=== PATIENT | female | born 1935 | race Caucasian/White ===

== ENCOUNTER 2019-05-07 18:23 | Observation (INO) ==
--- NOTE | 2019-05-07 19:30 | XRay Report ---
XR chest 1V portable CLINICAL HISTORY: Shortness of breath COMPARISON STUDY: No previous studies for comparison. FINDINGS: The cardiac and mediastinal contours are normal. There is no evidence of focal pulmonary co nsolidation. There is no evidence of failure. No pleural effusions are visualized.[Increased markings at the lung bases, likely related to technical factors. There is a 4 mm left midlung zone opacity st atistically postinflammatory. IMPRESSION: No active disease in the chest. Electronically signed by: Gwyn Ortiz M.D. 05/07/2019 7:29 PM
[2019-05-07 19:39] LABS: Basophils # (auto) 0.03 K/uL (0-0.2); Basophils % (auto) 0.5 %; Eosinophils % (auto) 5.3 %; Hematocrit (blood only) 37.5 % (37-47); Hemoglobin 12.8 g/dL (12.0-16.0); Immature Granulocytes # (auto) 0.02 K/uL (0.00-0.02); Immature Granulocytes % (auto) 0.4 %; Lymphocytes # (auto) 2.19 K/uL (1.2-3.4); Lymphocytes % (auto) 38.4 %; Mean Corpuscular Hgb Conc 34.1 g/dL (32-36); Mean Corpuscular Volume 90.1 fL (80-100); Mean Platelet Volume 10.5 fL (7.4-10.4); Monocytes # (auto) 0.48 K/uL (0.11-0.59); Monocytes % (auto) 8.4 %; Neutrophils # (auto) 2.68 K/uL (1.4-6.5); Platelet Count 190 K/uL (130-400); RDW Coefficient of Variation 12.7 % (11.5-14.5); RDW Standard Deviation 40.5 fL (36.4-46.3); Red Blood Count 4.16 M/uL (4.2-5.4)
[2019-05-07 21:31] LABS: Alanine Aminotransferase 24 U/L (12-78); Albumin Level 3.5 gm/dl (3.4-5.0); Alkaline Phosphatase 71 U/L (45-117); Aspartate Aminotransferase 24 U/L (15-37); BUN Creatinine Ratio 19.5 (10-20); Bilirubin,Total 0.4 mg/dl (0.2-1); Blood Urea Nitrogen 18 mg/dl (7-18); Carbon Dioxide 26 mmol/L (21-32); Chloride 109 mmol/L (98-107); Creatinine Clr Calc Pharmacy 48.1 ml/min; Est GFR (African American) 65.9; Est GFR (Non-African American) 56.8; Globulin 3.6 gm/dl (2.5-4.0); Glucose 102 mg/dl (70-99); Sodium 141 mmol/L (136-145); Total Protein 7.1 gm/dl (6.4-8.2)
[2019-05-07] MEDS ORDERED: OPTIRAY 320 125ml IV PRN (22:07)
[2019-05-07 22:36] LABS: NT Pro B Type Natriuretic Pept 108 pg/ml (0-1800); Troponin I < 0.015 ng/ml (0-0.045)
--- NOTE | 2019-05-07 22:37 | CT Scan Report ---
CT ANGIOGRAM OF THE CHEST CLINICAL HISTORY: Atypical chest pain and shortness of breath. Possible pulmonary embolism. COMPARISON STUDY: Chest x-ray dated 05/07/2019 TECHNIQUE: Following the IV administration of 119 mL of Optiray-320, CT angiogram of the thorax was p erformed from the thoracic inlet to the lung bases utilizing the pulmonary embolus protocol. Images a re reviewed in the axial, sagittal, and coronal planes. IV contrast was administered without complica tion. MIP imaging was performed. A dose lowering technique was utilized adhering to the principles o f ALARA. CT DOSE: 607.19 mGy.cm FINDINGS: There are calcified mediastinal and hilar lymph nodes, likely on a postinflammatory basis. There is n o pathologic axillary lymphadenopathy. There is no evidence of thoracic aortic aneurysm There were no pulmonary artery filling defects to indicate acute pulmonary embolism. No pleural effusions are visualized. There are groundglass opacities within is a distribution, likely secondary to air trapping. There is no lobar consolidation. There are scattered calcified granulomas. There is mild bronchial wall thicke jame with scattered areas of mucous plugging. There is a minor midthoracic compression deformity likely old IMPRESSION: 1. No evidence of acute pulmonary embolism 2. Scattered calcified granulomas and calcified mediastinal and hilar lymph nodes likely on a postinf lammatory basis 3. Groundglass pulmonary opacities with mosaic distribution. This is likely secondary to airway disea se with areas of air trapping. 4. Mild bronchial wall thickening and scattered areas of mucous plugging Electronically signed by: Gwyn Ortiz M.D. 05/07/2019 10:36 PM
[2019-05-07] MEDS ORDERED: ASPIRIN CHEW 324 MG PO STA (23:18)
[2019-05-07] MEDS ORDERED: METOPROLOL SUCC 50MG EXT REL TAB PO SCH (23:30)
[2019-05-07] MEDS ORDERED: ALBUT/IPRATROP 3MG/0.5MG NEB 3 ML VIAL NEB STA (23:30)
[2019-05-07] MEDS ORDERED: NITROGLYCERIN SL 0.4 MG/TAB TAB SL STA (23:50)
[2019-05-07] MEDS ORDERED: NITROGLYCERIN SL 0.4 MG/TAB TAB ONE (23:55)
[2019-05-08 00:15] LABS: Magnesium 2.2 mg/dl (1.8-2.4)
--- NOTE | 2019-05-08 01:19 | History & Physical Report ---
Date of Service May 08, 2019 Assessment & Plan (1) Chest tightness: Possibly from hypertensive urgency Definite musculoskeletal component with left-sided reproducible tenderness, recent breast biopsy procedure recurrent pneumothorax status post surgery past tobacco abuse OBS PCU Analgesia Continue losartan, titrate home beta-liz, may need additional medication Trend troponin TTE RE chest pain DVT prophylaxis. Lovenox subcu Full code History of Present Illness Chief Complaint: Chest tightness, shortness of breath Primary Care Provider: Dr. Brian Joy ([place], [place]) History obtained from patient and records. Medical history significant for hypertension, recurrent pneumothorax status post surgery, past tobacco abuse. Patient is a resident of [place], [place] who has been in town since last week to attend a local music festival. 3 days history of shortness of breath worse on exertion associated with inter mittent left-sided chest tightness, nonradiating. No cough symptoms. Usual SBP 120-160s. Denies dietary indiscretion, NSAID intake. Some stress with recent in the family. Patient also gives history of a recent left breast biopsy procedure. Patient currently comfortable at the emergency room. Medical History as above Surgical History : Lung surgery, cholecystectomy, appendectomy, hysterectomy, breast biopsy procedure Family History : Heart disease Personal/Social history : Past tobacco abuse, occasional EtOH intake, retired from cafeteria work Allergies Allergy/AdvReac Type Severity Reaction Status Date / Time sulfamethoxazole Allergy Rash Verified 05/07/19 23:30 [From Bactrim] trimethoprim [From Bactrim] Allergy Rash Verified 05/07/19 23:30 nitroglycerin AdvReac Intermediate delgado Verified 05/08/19 01:25 Home Medications Home Medications Medication Instructions Recorded Confirmed Type aspirin 81 mg PO DAILY 05/07/19 05/07/19 History losartan 100 mg PO DAILY 05/07/19 05/07/19 History metoprolol succinate 100 mg PO QPM 05/07/19 05/07/19 History vshrohyp-ure-EL-lycopen-lutein 1 tab PO DAILY 05/07/19 05/07/19 History [Centrum Silver] omega 1-nlh-aku-fish oil [Fish Oil] 1 cap PO DAILY 05/07/19 05/07/19 History Past Med/Surg History Medical History Pneumothorax (Resolved) H/O: hysterectomy Hyperlipidemia Surgical History Hx of cholecystectomy Family History Father Heart disease Brother Cancer Father Cancer Mother Cancer Social History Preferred Language: Ecuadorean Communication Ability: Effective Nailhead Setter Required: No Beliefs That Will Affect Care: None Current Living Situation: Spouse Other Information That Helps Us Care for You: No Feels Safe at Home: Yes Safety Concerns: Feels Safe At This Time Smoking Status: Former smoker Hx Alcohol Use: No Hx Substance Use: No Review of Systems Review of Systems: As per HPI, all 10 systems reviewed, all other ROS negative Physical Exam Physical Exam: GENERAL: Comfortable, pleasant, looks younger for stated age, no respiratory distress SKIN: Normal color, warm HEENT: [place] palpebral conjunctivae, no ptosis, dry buccal mucosa NECK : Supple, no tenderness CHEST : CTA, left anterior chest wall tenderness HEART : RRR, no obvious murmurs ABDOMEN: Some distention, nontender EXTREMITIES : No LE swelling/tenderness, no other conspicuous deformities noted NEUROLOGIC : Coherent, no facial asymmetry, no other gross focality Results & Data Vital Signs (Past 12 Hours) Vital Signs Temp Pulse Pulse Pulse Resp Resp BP 05/08/19 00:00 75 18 05/07/19 22:57 79 88 18 18 05/07/19 21:31 79 18 05/07/19 20:03 80 18 05/07/19 18:38 37.0 C 85 24 166/80 H BP Pulse Ox Pulse Ox 05/08/19 00:00 172/93 H 96 05/07/19 22:57 179/87 H 96 90 05/07/19 21:31 167/92 H 93 05/07/19 20:03 141/80 H 93 05/07/19 18:38 96 Laboratory Results Laboratory Results WBC 5.70 K/uL (4.8-10.8) 05/07/19 19:24 RBC 4.16 M/uL (4.2-5.4) L 05/07/19 19:24 Hgb 12.8 g/dL (12.0-16.0) 05/07/19 19:24 Hct 37.5 % (37-47) 05/07/19 19:24 MCV 90.1 fL (80-100) 05/07/19 19:24 MCH 30.8 pg (25-34) 05/07/19 19:24 MCHC 34.1 g/dL (32-36) 05/07/19 19:24 RDW Std Deviation 40.5 fL (36.4-46.3) 05/07/19 19:24 RDW Coeff of Amy 12.7 % (11.5-14.5) 05/07/19 19:24 Plt Count 190 K/uL (130-400) 05/07/19 19:24 MPV 10.5 fL (7.4-10.4) H 05/07/19 19:24 Immature Gran % (Auto) 0.4 % 05/07/19 19:24 Neut % (Auto) 47.0 % 05/07/19 19:24 Lymph % (Auto) 38.4 % 05/07/19 19:24 Dale % (Auto) 8.4 % 05/07/19 19:24 Eos % (Auto) 5.3 % 05/07/19 19:24 Baso % (Auto) 0.5 % 05/07/19 19:24 Immature Gran # (Auto) 0.02 K/uL (0.00-0.02) 05/07/19 19:24 Neut # (Auto) 2.68 K/uL (1.4-6.5) 05/07/19 19:24 Lymph # (Auto) 2.19 K/uL (1.2-3.4) 05/07/19 19:24 Dale # (Auto) 0.48 K/uL (0.11-0.59) 05/07/19 19:24 Eos # (Auto) 0.30 K/uL (0-0.5) 05/07/19 19:24 Baso # (Auto) 0.03 K/uL (0-0.2) 05/07/19 19:24 Sodium 141 mmol/L (136-145) 05/07/19 20:21 Potassium 4.0 mmol/L (3.5-5.1) 05/07/19 20:21 Chloride 109 mmol/L (98-107) H 05/07/19 20:21 Carbon Dioxide 26 mmol/L (21-32) 05/07/19 20:21 Anion Gap 6.0 (3-11) 05/07/19 20:21 BUN 18 mg/dl (7-18) 05/07/19 20:21 Creatinine 0.93 mg/dl (0.6-1.2) 05/07/19 20:21 Est Cr Clr Drug Dosing 48.1 ml/min 05/07/19 20:21 Est GFR ( Amer) 65.9 05/07/19 20:21 Est GFR (Non-Af Amer) 56.8 05/07/19 20:21 BUN/Creatinine Ratio 19.5 (10-20) 05/07/19 20:21 Glucose 102 mg/dl (70-99) H 05/07/19 20:21 Calcium 9.0 mg/dl (8.5-10.1) 05/07/19 20:21 Magnesium 2.2 mg/dl (1.8-2.4) 05/07/19 20:21 Total Bilirubin 0.4 mg/dl (0.2-1) 05/07/19 20:21 AST 24 U/L (15-37) 05/07/19 20:21 ALT 24 U/L (12-78) 05/07/19 20:21 Alkaline Phosphatase 71 U/L (45-117) 05/07/19 20:21 Troponin I < 0.015 ng/ml (0-0.045) 05/07/19 20:21 NT-Pro-B Natriuret Pep 108 pg/ml (0-1800) 05/07/19 20:21 Total Protein 7.1 gm/dl (6.4-8.2) 05/07/19 20:21 Albumin 3.5 gm/dl (3.4-5.0) 05/07/19 20:21 Globulin 3.6 gm/dl (2.5-4.0) 05/07/19 20:21 Albumin/Globulin Ratio 1.0 (0.9-2) 05/07/19 20:21 Lipase Cancelled 05/07/19 19:24 Specimen Hemolysis 05/07/19 20:[address] chest: 1. No evidence of acute pulmonary embolism 2. Scattered calcified granulomas and calcified mediastinal and hilar lymph nodes likely on a postinflammatory basis 3. Groundglass pulmonary opacities with mosaic distribution. This is likely secondary to airway disease with areas of air trapping. 4. Mild bronchial wall thickening and scattered areas of mucous plugging EKG as per my interpretation: Rate 80, NSR, RAD, LPFB, LAE, T wave inversion lateral leads, PVCs
[2019-05-08] MEDS ORDERED: METOPROLOL SUCC 50MG EXT REL TAB PO STA (01:29)
[2019-05-08] MEDS ORDERED: ACETAMINOPHEN 325 MG TAB PO PRN (02:23)
[2019-05-08] MEDS ORDERED: TRAMADOL HCL 50 MG TABLET PO PRN (02:23)
[2019-05-08] MEDS ORDERED: PROMETHAZINE HCL 12.5 MG in SODIUM CHLORIDE 0.9% 50 ML IV PRN (02:23)
[2019-05-08] MEDS ORDERED: LORazepam 0.25 MG/0.5 ML VIAL IV PRN (02:23)
[2019-05-08] MEDS ORDERED: SODIUM CHLORIDE 0.45 % 1,000 ML IV STA (02:23)
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
[2019-05-08 03:21] LABS: Basophils # (auto) 0.03 K/uL (0-0.2); Basophils % (auto) 0.4 %; Eosinophils # (auto) 0.34 K/uL (0-0.5); Hematocrit (blood only) 38.4 % (37-47); Hemoglobin 13.1 g/dL (12.0-16.0); Immature Granulocytes # (auto) 0.01 K/uL (0.00-0.02); Immature Granulocytes % (auto) 0.1 %; Lymphocytes # (auto) 3.22 K/uL (1.2-3.4); Lymphocytes % (auto) 47.4 %; Mean Corpuscular Hgb Conc 34.1 g/dL (32-36); Mean Corpuscular Volume 91.4 fL (80-100); Mean Platelet Volume 9.7 fL (7.4-10.4); Monocytes # (auto) 0.66 K/uL (0.11-0.59); Monocytes % (auto) 9.7 %; Neutrophils # (auto) 2.53 K/uL (1.4-6.5); Neutrophils % (auto) 37.4 %; Platelet Count 198 K/uL (130-400); RDW Coefficient of Variation 12.5 % (11.5-14.5); RDW Standard Deviation 41.4 fL (36.4-46.3); White Blood Count 6.79 K/uL (4.8-10.8)
[2019-05-08 03:33] LABS: Partial Thromboplastin Ratio 0.8; Partial Thromboplastin Time 22.2 Seconds (21.0-31.0); Prothrombin Time 10.2 Seconds (9.0-12.0)
[2019-05-08 03:37] LABS: BUN Creatinine Ratio 19.2 (10-20); Blood Urea Nitrogen 18 mg/dl (7-18); Calcium 8.7 mg/dl (8.5-10.1); Carbon Dioxide 26 mmol/L (21-32); Chloride 107 mmol/L (98-107); Creatinine Clr Calc Pharmacy 48.7 ml/min; Est GFR (African American) 66.7; Est GFR (Non-African American) 57.6; Glucose 94 mg/dl (70-99); Potassium 4.3 mmol/L (3.5-5.1); Sodium 140 mmol/L (136-145)
[2019-05-08 03:42] LABS: Chol HDL Ratio 7; Cholesterol 239 mg/dl (0-200); HDL Cholesterol 37 mg/dl; LDL Cholesterol Calculated 155 mg/dl; Triglycerides 234 mg/dl (0-150); Troponin I < 0.015 ng/ml (0-0.045); VLDL Cholesterol 47 mg/dl
[2019-05-08] MEDS: CEROVITE ADV FORMULA TAB PO SCH (08:19)
[2019-05-08] MEDS: ASPIRIN 81 MG ECTAB PO SCH (08:19)
[2019-05-08] MEDS: LOSARTAN POTASSIUM 50 MG TAB PO SCH (08:19)
[2019-05-08] MEDS ORDERED: ENOXAPARIN INJ 30 MG/0.3 ML SYR SQ SCH (09:00)
[2019-05-08] MEDS ORDERED: METOPROLOL SUCC 25MG EXT REL TAB PO SCH ×2 (21:00)
[2019-05-08] MEDS ORDERED: METOPROLOL SUCC 50MG EXT REL TAB PO SCH (21:00)
--- NOTE | 2019-05-08 21:38 | Communication Note ---
Date of Service: May 08, 2019 Admitted early this morning with chest pressure and dyspnea on exertion. Rechecked this afternoon. Vital signs stable. O2 sats in 90's on RA. Feels better, but still has ongoing chest pressure. Lungs- clear Heart- RRR, no murmur, gallop, or rub appreciated Troponins negative. EKG demonstrated inferior T wave inversions, no baseline available for compariso n. CTA negative for pulmonary embolism. Concerned about recent onset of chest pressure and dyspnea on exertion. Will order stress testing before discharge. Patient had some form of pharmacologic stress testing greater than 10 years ago and found it to be an unpleasant experience. She prefers a treadmill stress test and feels that she will be able to ambulate on the treadmill.
[2019-05-09] MEDS: CEROVITE ADV FORMULA TAB PO SCH (08:03)
[2019-05-09] MEDS: LOSARTAN POTASSIUM 50 MG TAB PO SCH (08:03)
[2019-05-09] MEDS: ASPIRIN 81 MG ECTAB PO SCH (08:04)
[2019-05-09] MEDS ORDERED: ENOXAPARIN INJ 40 MG/0.4 ML SYR SQ SCH (09:00)
[2019-05-09] MEDS ORDERED: DOBUTamine HCL 12.5 MG/ML 20 ML VIAL IV ONE (09:01)
[2019-05-09] MEDS ORDERED: ATROPINE SULFATE 0.1 MG/ML 10ML SYR IV ONE (09:01)
[2019-05-09] MEDS ORDERED: METOPROLOL TARTRATE 1 MG/ML VIAL IV ONE (09:01)
--- NOTE | 2019-05-09 14:38 | Hospitalist Progress Note ---
Date of Service May 09, 2019 Assessment & Plan (1) Chest tightness: Troponins negative. EKG showed nonspecific T-wave changes inferiorly. Rest echo showed normal LV wall motion and systolic function. No evidence of stress-induced ischemia on dobutamine stress echo. CTA chest negative for pulmonary embolism. (2) Dyspnea on exertion: O2 sats in 90's on RA. CTA chest: IMPRESSION: 1. No evidence of acute pulmonary embolism 2. Scattered calcified granulomas and calcified mediastinal and hilar lymph nodes likely on a postinflammatory basis 3. Groundglass pulmonary opacities with mosaic distribution. This is likely secondary to airway disease with areas of air trapping. 4. Mild bronchial wall thickening and scattered areas of mucous plugging Nonsmoker. No history of asthma, COPD, or other pulmonary disease. No fever. No cough. Consider outpatient PFT's if symptoms persist. (3) Hypertension: BP's fluctuated. Continue metoprolol and losartan. Patient has BP monitor at home. Check BP's BID and keep diary to share with PCP. (4) DVT prophylaxis: Received enoxaparin. Ambulating. (5) Discharge planning issues: Discharge to home. Follow-up with PCP in [place]: Brian Joy MD [address] [place] [address], [address] [place] [address] Subjective Doing well. No further chest pain or SOB. Dobutamine stress echo this morning went well- no CP or stress-induced ischemia. Physical Exam Constitutional: no acute distress Respiratory: no respiratory distress Auscultation: lungs clear to auscultation bilaterally Cardiovascular: Rate/Rhythm: regular rate and regular rhythm Heart Sounds: no gallop, no murmur and no cardiac rub Vessels: no JVD Extremities: no calf tenderness and no edema Gastrointestinal (Abdomen): normal bowel sounds, soft, nontender, no hepatosplenomegaly Skin: no rashes, warm and dry Psychiatric: Orientation: alert and oriented x 3 Results & Data Vital Signs (Past 12 Hours) Vital Signs Temp Pulse Pulse Resp BP Pulse Ox 05/09/19 11:52 37.1 C 72 18 130/60 95 05/09/19 07:44 36.6 C 70 18 102/66 94 05/09/19 07:29 66 05/09/19 03:40 36.7 C 81 16 134/69 95 (1) Hypertension Hypertension type: essential hypertension Qualified Code(s): I10 - Essential (primary) hypertension
--- NOTE | 2019-05-10 08:58 | Discharge Summary ---
Date of Service Date of Admission: 05/08/19 Date of Discharge: 05/09/19 Admission HPI Per Admitting Provider History obtained from patient and records. Medical history significant for hypertension, recurrent pneumothorax status post surgery, past tobacco abuse. Patient is a resident of [place], [place] who has been in town since last week to attend a local music festival. 3 days history of shortness of breath worse on exertion associated with intermittent left-sided chest tightness, nonradiating. No cough symptoms. Usual SBP 120-160s. Denies dietary indiscretion, NSAID intake. Some stress with recent in the family. Patient also gives history of a recent left breast biopsy procedure. Patient currently comfortable at the emergency room. Admission Exam Per Admitting Provider GENERAL: Comfortable, pleasant, looks younger for stated age, no respiratory distress SKIN: Normal color, warm HEENT: [place] palpebral conjunctivae, no ptosis, dry buccal mucosa NECK : Supple, no tenderness CHEST : CTA, left anterior chest wall tenderness HEART : RRR, no obvious murmurs ABDOMEN: Some distention, nontender EXTREMITIES : No LE swelling/tenderness, no other conspicuous deformities noted NEUROLOGIC : Coherent, no facial asymmetry, no other gross focality Principal Diagnosis chest pain- MN and PE rule out dyspnea on exertion Discharge Data Allergies Allergy/AdvReac Type Severity Reaction Status Date / Time sulfamethoxazole Allergy Rash Verified 05/07/19 23:30 [From Bactrim] trimethoprim [From Bactrim] Allergy Rash Verified 05/07/19 23:30 nitroglycerin AdvReac Intermediate delgado Verified 05/08/19 01:25 Consultations 05/07/19 23:16 ED Decision to Admit Stat 05/09/19 11:53 Burn CD for patient Routine Ordered Studies 05/07/19 19:31 CT angio chest PE protocol Stat Hospital Course (1) Chest tightness: Troponins negative. EKG showed nonspecific T-wave changes inferiorly. Rest echo showed normal LV wall motion and systolic function. No evidence of stress-induced ischemia on dobutamine stress echo. CTA chest negative for pulmonary embolism. (2) Dyspnea on exertion: O2 sats in 90's on RA. CTA chest: IMPRESSION: 1. No evidence of acute pulmonary embolism 2. Scattered calcified granulomas and calcified mediastinal and hilar lymph nodes likely on a postinflammatory basis 3. Groundglass pulmonary opacities with mosaic distribution. This is likely secondary to airway disease with areas of air trapping. 4. Mild bronchial wall thickening and scattered areas of mucous plugging Nonsmoker. No history of asthma, COPD, or other pulmonary disease. No fever. No cough. Consider outpatient PFT's if symptoms persist. (3) Hypertension: BP's fluctuated (as high as 180/91 and as low as 102/66). May benefit from lower BP's, but best to avoid overly-aggressive management while traveling. Continue metoprolol and losartan at current dosing. Patient has BP monitor at home. She was asked to check BP's twice a day and keep diary to share with PCP. (4) DVT prophylaxis: Received enoxaparin. Ambulating. (5) Discharge planning issues: Discharge to home. Patient was given copies of labs, EKG's, stress echo report, and CTA chest images. Follow-up with PCP in [place]: Brian Joy MD [address] [place] [address], [address] [place] [address] Total Time Total Time Spent Total Time Spent (In Minutes): 30 Discharge Plan Discharge Items Patient Disposition: Home - Self-Care Reason For Visit: chest pressure, shortness of breath Discharge Diagnosis: chest pressure- no sign of heart attack shortness of breath- no sign of pneumonia, blood clots, or fluid in lungs high blood pressure Condition: Good Discharge Goals: Decrease discomfort and Prevent disease Activity: Resume your previous activity Activity Comment: rest if tired or short of breath Non-emergency contact: Primary Care Provider and Hospitalist Call non-emergency contact if: you have any medication questions and your symptoms worsen Follow-up/Referrals: PCP,NO [Primary Care Provider] - Diet: Heart Healthy Add Provider Instructions: MEDICATION CHANGES: none SUMMARY OF TEST RESULTS: Blood tests- no sign of heart attack. Stress test- no sign of severe blockage in coronary arteries. Total cholesterol 239. LDL cholesterol 155. HDL cholesterol 37. Triglycerides 234. Fasting blood sugar 94. PENDING TEST RESULTS: none RECOMMENDATIONS FOR FOLLOW-UP: Please let your primary care provider know if you continue to have trouble breathing or other problems. OTHER INSTRUCTIONS: Monitor your blood pressures twice a day for now and keep diary to share with your primary care provider. Seek medical attention if you have: * temperature above 101 * chest pain or trouble breathing * abdominal pain, nausea, vomiting * diarrhea, dark stools or bloody stools * any unanswered questions or concerns Call 911 if symptoms are severe. Please take good care of yourself. Call if you have any questions or problems. You can reach a [facility] hospitalist on duty at [facility] 24 hours a day by calling [phone]. My cell # is [phone]. Prescriptions: Continued metoprolol succinate 100 mg tablet extended release 24 hr 100 mg PO QPM RF: 0 aspirin 81 mg tablet,delayed release (DR/EC) 81 mg PO DAILY RF: 0 losartan 100 mg tablet 100 mg PO DAILY RF: 0 Centrum Silver 0.4-300-250 mg-mcg-mcg tablet 1 tab PO DAILY RF: 0 Fish Oil 60-90-500 mg capsule,delayed release(DR/EC) 1 cap PO DAILY RF: 0 Stand-Alone Forms: [facility] Discharge Orders: Discharge Order (Routine); Ordered 05/09/19 Ordered By: Eric Marcelo Admission Data Admit Date/Time: 05/08/19 01:26 Attending Provider: Eric Marcelo Admit Provider: Robert Albright Primary Care Provider: PCP,NO Other Providers: Robert Albright Service: Telemetry Other Interventions: Discharge Summary Assessment (RN) Last Done: 05/09/19 14:45 Pending Studies at Discharge: No DC Date/Time DO NOT enter until pt leaves facility: 05/09/19 14:56
== END 2019-05-09 14:56 | disposition home or self-care (01) ==
LOC: 2S 18:23 → ED 18:23 → 2S 05-08 02:09